=== PATIENT | male | born 1950 | race Caucasian/White ===

== ENCOUNTER 2017-09-17 13:26 | Inpatient (IN) ==
--- NOTE | 2017-09-17 13:50 | Emergency Department Note ---
Altered Mental Status HPI - General Chief Complaint: Altered Mental Status Stated Complaint: altered mental Time Seen by Provider: 09/17/17 13:32 Source: EMS Mode of arrival: EMS Limitations: altered mental status - History of Present Illness HPI Narrative: 67-year-old male presents by EMS due to walking around outside and incoherent speech. His hands and feet are very dirty. He is in his underwear. He has a history of alcohol abuse as well as alcohol withdrawal seizures and increased ammonia levels. He looks good at this time and is pleasant. He cannot really answer any questions and does not give adequate answers. No focal deficits. - Related Data Previous Rx's Medication Instructions Recorded Clindamycin HCl [Cleocin] 300 mg PO TID #30 cap 01/28/17 Allergies Allergy/AdvReac Type Severity Reaction Status Date / Time Sulfa (Sulfonamide Allergy Unknown HIVES Verified 12/25/16 14:00 Antibiotics) [SULFA(SULFONAMIDE ANTIBIOTICS)] Review of Systems All systems ED: reviewed and negative except as stated. Past Medical History - Past Medical History Medical history: Reports: seizures, other (alcoholism) Psychiatric history: Reports: no psych history Surgical history ED: Reports: non-contributory Family history: Reports: non-contributory - Social History smoking status: Current every day smoker Alcohol use: Reports: Heavy Drug use: Reports: none Physical Exam Limitations: altered mental status General appearance: alert, in no apparent distress Head: atraumatic Eye: Present: normal appearance. Absent: conjunctival injection Neck: Present: normal inspection, full ROM Chest: Present: normal inspection, symmetric chest wall rise Respiratory: Present: normal lung sounds bilaterally Cardiovascular: Present: tachycardia, normal heart sounds Abdominal: Present: soft, normal bowel sounds. Absent: tenderness Extremities: Present: normal inspection, full ROM Neurological: Present: alert, CN II-XII intact. Absent: oriented X3 Psychiatric: Present: normal mood. Absent: agitated Skin: Present: warm, dry, intact Course - Reevaluation(s) Reevaluation #1: I talked with his brother Galo Doshi and he said he will come in to talk to me. From what I did get from him he tried to get him to the hospital yesterday but police were not able to convince him. He states this is been a progressive worsening. He has not shown up yet but I will wait to talk to him. Time: 18:30 Reevaluation #2: Patient's family came in. His brother and cousin were able to talk to me. His brother states the last time he drank was on Friday. He wanted him to be evaluated psychologically due to hallucinating in the last week. He was able to see him yesterday and he was hallucinating but was able to have a conversation with him. The brother seems confused when I asked him questions. The brother thinks he is going crazy but I explained that due to his alcoholism he could have a secondary encephalopathy going on. The brother says that he does not think he has been drinking last few days but was drinking on Friday. The neighbors were concerned about him. He has not had any history of psychological issues that have been requiring hospitalization to mental health facility. Time: 19:15 Vital Signs Temperature 99.3 F H 09/17/17 13:27 Pulse Rate 106 H 09/17/17 13:27 Respiratory Rate 16 09/17/17 13:27 Blood Pressure 151/104 09/17/17 13:27 Pulse Oximetry (%) 98 09/17/17 13:27 Temperature 98.1 F 09/17/17 16:17 Pulse Rate 81 09/17/17 18:33 Respiratory Rate 18 09/17/17 18:33 Blood Pressure 162/85 09/17/17 18:33 Pulse Oximetry (%) 98 09/17/17 18:33 Altered Mental Status - Lab Data Lab results reviewed: Yes I reviewed the patient's lab results. Result diagrams: 09/17/17 13:53 09/17/17 13:53 Lab Results 09/17/17 09/17/17 09/17/17 Range/Units 13:53 13:53 13:53 WBC 10.5 (4.5-11.0) K/mcL RBC 4.93 (4.50-5.90) M/mcL Hgb 17.3 H (13.5-16.5) g/dL Hct 51.3 (41.0-55.0) % POC Hct 54.0 (41.0-55.0) % MCV 104.0 H (80.0-100.0) fL MCH 35.0 H (26.0-34.0) pg MCHC 33.6 (31.0-36.0) g/dL RDW 14.7 H (11.5-14.5) % Plt Count 252 (140-440) K/mcL MPV 8.9 (7.4-10.4) fL Total Counted 100 Seg Neutrophils % 76 (38-78) % Band Neutrophils % 2 (0-10) % Lymphocytes % 10 L (15-49) % Monocytes % (Manual) 8 (1-12) % Reactive Lymphocytes 4 H (0-2) % Platelet Estimate Normal (NORMAL) RBC Morphology Abnorm A (NORMAL) Macrocytosis 1+ A (NONE SEEN) PT (11.9-14.5) sec INR (0.9-1.1) VBG Lactic Acid 1.6 (0.5-2.2) mmol/L POC Sodium 141 (133-145) mmol/L Sodium 141 (133-145) mmol/L POC Potassium 4.3 (3.3-5.1) mmol/L Potassium 4.6 (3.3-5.1) mmol/L POC Chloride 106 (96-108) mmol/L Chloride 99 (96-108) mmol/L Carbon Dioxide 18 L (22-30) mmol/L POC Total CO2 21 L (22-30) mmol/L Anion Gap 24.0 H (8-16) POC BUN 42 H (8-23) mg/dl BUN 36 H (8-23) mg/dl Creatinine 2.9 H (0.7-1.2) mg/dl POC Creatinine 3.2 H (0.7-1.2) mg/dl GFR Calculation 22 Glucose 98 (70-105) mg/dL POC Glucose 103 (70-105) mg/dL Calcium 9.9 (8.6-10.4) mg/dl POC WB Ioniz Calcium 1.04 L (1.16-1.32) mmol/L Phosphorus (2.7-4.5) mg/dL Magnesium (1.6-2.5) mg/dL Total Bilirubin 0.8 (0.0-1.0) mg/dL AST 48 H (0-37) U/l ALT 18 (0-40) U/l Alkaline Phosphatase 85 (39-117) U/L Ammonia (16-60) umol/L Total Protein 7.7 (5.9-8.4) gm/dL Albumin 4.4 (3.2-5.2) gm/dL Globulin 3.3 (2.2-3.7) gm/dL Albumin/Globulin Ratio 1.3 (1.0-2.3) Urine Color Urine Appearance Urine pH (5.0-9.0) Ur Specific [place] (1.000-1.035) Urine Protein (NEG) mg/dL Urine Glucose (UA) (NEG) mg/dL Urine Ketones (NEG) mg/dL Urine Occult Blood (<0.03) mg/dL Urine Nitrate (NEG) Urine Bilirubin (NEG) mg/dL Urine Urobilinogen (NEG) mg/dL Ur Leukocyte Esterase (NEG) /uL Urine RBC (0-1) /hpf Urine WBC (0-4) /hpf Ur Squamous Epith Cells (0-4) /hpf Urine Bacteria (0) /hpf Hyaline Casts (0-2) /lpf Urine Mucus (0) /hpf Ur Culture Indicated? Urine Opiates Screen (NONDETECTED) Ur Oxycodone Screen (NONDETECTED) Urine Methadone Screen (NONDETECTED) Ur Barbiturates Screen (NONDETECTED) Ur Phencyclidine Scrn (NONDETECTED) Ur Amphetamines Screen (NONDETECTED) U Benzodiazepines Scrn (NONDETECTED) Urine Cocaine Screen (NONDETECTED) U Marijuana (THC) Screen (NONDETECTED) Ethyl Alcohol (<0.010) gm/dl 09/17/17 09/17/17 09/17/17 Range/Units 13:53 13:53 13:53 WBC (4.5-11.0) K/mcL RBC (4.50-5.90) M/mcL Hgb (13.5-16.5) g/dL Hct (41.0-55.0) % POC Hct (41.0-55.0) % MCV (80.0-100.0) fL MCH (26.0-34.0) pg MCHC (31.0-36.0) g/dL RDW (11.5-14.5) % Plt Count (140-440) K/mcL MPV (7.4-10.4) fL Total Counted Seg Neutrophils % (38-78) % Band Neutrophils % (0-10) % Lymphocytes % (15-49) % Monocytes % (Manual) (1-12) % Reactive Lymphocytes (0-2) % Platelet Estimate (NORMAL) RBC Morphology (NORMAL) Macrocytosis (NONE SEEN) PT (11.9-14.5) sec INR (0.9-1.1) VBG Lactic Acid (0.5-2.2) mmol/L POC Sodium (133-145) mmol/L Sodium (133-145) mmol/L POC Potassium (3.3-5.1) mmol/L Potassium (3.3-5.1) mmol/L POC Chloride (96-108) mmol/L Chloride (96-108) mmol/L Carbon Dioxide (22-30) mmol/L POC Total CO2 (22-30) mmol/L Anion Gap (8-16) POC BUN (8-23) mg/dl BUN (8-23) mg/dl Creatinine (0.7-1.2) mg/dl POC Creatinine (0.7-1.2) mg/dl GFR Calculation Glucose (70-105) mg/dL POC Glucose (70-105) mg/dL Calcium (8.6-10.4) mg/dl POC WB Ioniz Calcium (1.16-1.32) mmol/L Phosphorus 5.2 H (2.7-4.5) mg/dL Magnesium 1.9 (1.6-2.5) mg/dL Total Bilirubin (0.0-1.0) mg/dL AST (0-37) U/l ALT (0-40) U/l Alkaline Phosphatase (39-117) U/L Ammonia 26 (16-60) umol/L Total Protein (5.9-8.4) gm/dL Albumin (3.2-5.2) gm/dL Globulin (2.2-3.7) gm/dL Albumin/Globulin Ratio (1.0-2.3) Urine Color Urine Appearance Urine pH (5.0-9.0) Ur Specific [place] (1.000-1.035) Urine Protein (NEG) mg/dL Urine Glucose (UA) (NEG) mg/dL Urine Ketones (NEG) mg/dL Urine Occult Blood (<0.03) mg/dL Urine Nitrate (NEG) Urine Bilirubin (NEG) mg/dL Urine Urobilinogen (NEG) mg/dL Ur Leukocyte Esterase (NEG) /uL Urine RBC (0-1) /hpf Urine WBC (0-4) /hpf Ur Squamous Epith Cells (0-4) /hpf Urine Bacteria (0) /hpf Hyaline Casts (0-2) /lpf Urine Mucus (0) /hpf Ur Culture Indicated? Urine Opiates Screen (NONDETECTED) Ur Oxycodone Screen (NONDETECTED) Urine Methadone Screen (NONDETECTED) Ur Barbiturates Screen (NONDETECTED) Ur Phencyclidine Scrn (NONDETECTED) Ur Amphetamines Screen (NONDETECTED) U Benzodiazepines Scrn (NONDETECTED) Urine Cocaine Screen (NONDETECTED) U Marijuana (THC) Screen (NONDETECTED) Ethyl Alcohol < 0.010 (<0.010) gm/dl 09/17/17 09/17/17 09/17/17 Range/Units 13:53 15:50 15:50 WBC (4.5-11.0) K/mcL RBC (4.50-5.90) M/mcL Hgb (13.5-16.5) g/dL Hct (41.0-55.0) % POC Hct (41.0-55.0) % MCV (80.0-100.0) fL MCH (26.0-34.0) pg MCHC (31.0-36.0) g/dL RDW (11.5-14.5) % Plt Count (140-440) K/mcL MPV (7.4-10.4) fL Total Counted Seg Neutrophils % (38-78) % Band Neutrophils % (0-10) % Lymphocytes % (15-49) % Monocytes % (Manual) (1-12) % Reactive Lymphocytes (0-2) % Platelet Estimate (NORMAL) RBC Morphology (NORMAL) Macrocytosis (NONE SEEN) PT 12.4 (11.9-14.5) sec INR 0.9 (0.9-1.1) VBG Lactic Acid (0.5-2.2) mmol/L POC Sodium (133-145) mmol/L Sodium (133-145) mmol/L POC Potassium (3.3-5.1) mmol/L Potassium (3.3-5.1) mmol/L POC Chloride (96-108) mmol/L Chloride (96-108) mmol/L Carbon Dioxide (22-30) mmol/L POC Total CO2 (22-30) mmol/L Anion Gap (8-16) POC BUN (8-23) mg/dl BUN (8-23) mg/dl Creatinine (0.7-1.2) mg/dl POC Creatinine (0.7-1.2) mg/dl GFR Calculation Glucose (70-105) mg/dL POC Glucose (70-105) mg/dL Calcium (8.6-10.4) mg/dl POC WB Ioniz Calcium (1.16-1.32) mmol/L Phosphorus (2.7-4.5) mg/dL Magnesium (1.6-2.5) mg/dL Total Bilirubin (0.0-1.0) mg/dL AST (0-37) U/l ALT (0-40) U/l Alkaline Phosphatase (39-117) U/L Ammonia (16-60) umol/L Total Protein (5.9-8.4) gm/dL Albumin (3.2-5.2) gm/dL Globulin (2.2-3.7) gm/dL Albumin/Globulin Ratio (1.0-2.3) Urine Color Straw Urine Appearance Hazy Urine pH 5.0 (5.0-9.0) Ur Specific [place] 1.019 (1.000-1.035) Urine Protein 30 A (NEG) mg/dL Urine Glucose (UA) Negative (NEG) mg/dL Urine Ketones 20 A (NEG) mg/dL Urine Occult Blood Neg (<0.03) mg/dL Urine Nitrate Neg (NEG) Urine Bilirubin Neg (NEG) mg/dL Urine Urobilinogen 2.0 A (NEG) mg/dL Ur Leukocyte Esterase Neg (NEG) /uL Urine RBC 1 (0-1) /hpf Urine WBC 3 (0-4) /hpf Ur Squamous Epith Cells 0 (0-4) /hpf Urine Bacteria 0 (0) /hpf Hyaline Casts 113 H (0-2) /lpf Urine Mucus Many A (0) /hpf Ur Culture Indicated? No Urine Opiates Screen None detected (NONDETECTED) Ur Oxycodone Screen None detected (NONDETECTED) Urine Methadone Screen None detected (NONDETECTED) Ur Barbiturates Screen None detected (NONDETECTED) Ur Phencyclidine Scrn None detected (NONDETECTED) Ur Amphetamines Screen None detected (NONDETECTED) U Benzodiazepines Scrn None detected (NONDETECTED) Urine Cocaine Screen None detected (NONDETECTED) U Marijuana (THC) Screen Suspect positive A (NONDETECTED) Ethyl Alcohol (<0.010) gm/dl - Radiology Data Radiology results reviewed: Yes I reviewed the patient's radiology results. Negative chest x-ray and head CT Disposition Pt seen by [facility]/PA only: Yes Clinical Impression: Altered mental status, Encephalopathy acute, Acute kidney injury Disposition: Xfer As Inpt ([facility]) Condition: Fair
[2017-09-17] MEDS ORDERED: POTASSIUM CHLORIDE 20 MEQ, MAGNESIUM SULFATE 16.24 MEQ, THIAMINE 100 MG, MVI, ADULT NO.... IV SCH (14:00)
[2017-09-17] MEDS ORDERED: POTASSIUM CHLORIDE 20 MEQ, THIAMINE 100 MG, MVI, ADULT NO.4 WITH VIT K 10 ML in 0.9 % S... IV SCH (14:15)
[2017-09-17] MEDS ORDERED: 0.9 % SODIUM CHLORIDE 500 ML IV ONE (14:30)
--- NOTE | 2017-09-17 14:31 | XRay Report ---
HISTORY: Reason for Exam:confusion FINDINGS: The lungs are clear. The heart, mediastinum, jay and pleura are normal. IMPRESSION: Normal chest. Interpreted and Authenticated by: Rigo Encinas 09/17/17
[2017-09-17 14:41] LABS: Mean Corpuscular HGB Conc 33.6 g/dL (31.0-36.0); Platelet Count 252 K/mcL (140-440); RBC 4.93 M/mcL (4.50-5.90); Red Cell Distribution Width 14.7 % (11.5-14.5)
[2017-09-17 15:01] LABS: ALT/SGPT 18 U/l (0-40); Albumin 4.4 gm/dL (3.2-5.2); Albumin/Globulin Ratio 1.3 (1.0-2.3); Alkaline Phosphatase 85 U/L (39-117); Blood Urea Nitrogen 36 mg/dl (8-23)
[2017-09-17 15:20] LABS: Band Neutrophils % 2 % (0-10); Lymphocytes % 10 % (15-49); Monocytes % (Manual) 8 % (1-12); Platelet Estimate NORMAL (NORMAL); Segmented Neutrophils % 76 % (38-78)
[2017-09-17 15:21] LABS: Macrocytosis 1+ (NONE SEEN); RBC Morphology ABNORM (NORMAL)
--- NOTE | 2017-09-17 15:48 | Cat Scan Report ---
History: Altered mental status TECHNIQUE: The brain was imaged without contrast at 2.5 mm intervals. Dose reduction technology was used. FINDINGS: There is mild atrophy both above and below the tentorium. There is no apparent infarct. No hemorrhage or mass effect are present. The ventricles are normal in size. There has been mild progression of the atrophy in the cerebellum since the prior head CT done on 10/21/14. IMPRESSION: Cerebral atrophy and no acute abnormality. Tanesha Borjas was called with results Interpreted and Authenticated by: Rigo Encinas 09/17/17
[2017-09-17 16:22] LABS: Appearance,Urine HAZY; Bacteria,Urine 0 /hpf (0); Bilirubin,Urine NEG (NEG); Color,Urine STRAW; Glucose,Urine (UA) NEGATIVE (NEG); Leukocyte Esterase,Urine NEG /uL (NEG); Mucus,Urine MANY /hpf (0); Protein,Urine 30 mg/dL (NEG); Specific Gravity,Urine 1.019 (1.000-1.035); Urine Blood NEG mg/dL (<0.03); Urine Hyaline Cast 113 /lpf (0-2); Urine RBC 1 /hpf (0-1); Urine Squamous Epithelial Cell 0 /hpf (0-4); Urine WBC 3 /hpf (0-4)
[2017-09-17 16:28] LABS: Amphetamine Screen,Urine NONE DETECTED (NONDETECTED); Benzodiazepines Screen,Urine NONE DETECTED (NONDETECTED); Cocaine Screen,Urine NONE DETECTED (NONDETECTED); Opiate Screen,Urine NONE DETECTED (NONDETECTED); Oxycodone, Urine Screen NONE DETECTED (NONDETECTED)
[2017-09-17] MEDS ORDERED: 0.9 % SODIUM CHLORIDE 1,000 ML IV ONE ×2 (16:38→18:27)
[2017-09-17] MEDS ORDERED: THIAMINE 100 MG TABLET PO ONE (16:51)
[2017-09-17] MEDS ORDERED: THIAMINE 100 MG/ML VIAL IM ONE (17:08)
[2017-09-17] MEDS ORDERED: ONDANSETRON 4 MG/2 ML VIAL IV PRN ×3 (18:42→19:59)
[2017-09-17] MEDS ORDERED: 0.45 % SODIUM CHLORIDE 1,000 ML IV SCH ×3 (18:45→19:59)
[2017-09-17] MEDS ORDERED: IPRATROPIUM/ALBUTEROL 3 ML AMPUL.NEB NEB SCH (19:00)
--- NOTE | 2017-09-17 19:39 | Internal Med History&Physical ---
Medical - H&P: [facility] Patient information: Note initiated : 09/17/17 at 7:36 pm Service Date, if different from initiated Date: [] Patient: Carloz Doshi a 67 y/o M admitted on 09/17/17 for altered mental. Chief Complaint: [] Chief complaint: altered mental status History of present illness: Mr. Doshi is a 67 year old M with significant history of tobacco and alcohol abuse, alcohol withdrawal seizures, is noted to be unkempt, heaving strangely, with incoherent speech, in underwear. Apparently his neighbors concerned and called the EMS. He is in a catatonic state, nonresponsive and nonverbal with blank stares. No information is available other than verbal reports from EMS and ER provider,Tanesha Borjas PA-C, who says his brother's contact number on his record does not work. Preliminary lab work showed acute kidney injury, with severe dehydration, urine drug screen is pending. He has gotten, liter of IV fluid, and he is currently receiving banana bag and additional thiamine ( orally or IM). We'll admit him on MedSurg with watcher, aggressive IV fluid rehydration, daily [id number], evaluate and treat reversible medical causes ROS unobtainable: due to mental status All systems: reviewed and no additional remarkable complaints except as stated Medical - H&P: PMH Medical history: Withdrawal seizures, reported epilepsy, alcohol abuse and tobacco abuse,. Medical - H&P: Meds Allergies Allergy/AdvReac Type Severity Reaction Status Date / Time Sulfa (Sulfonamide Allergy Unknown HIVES Verified 12/25/16 14:00 Antibiotics) [SULFA(SULFONAMIDE ANTIBIOTICS)] Medical - H&P: Exam - Constitutional Vitals: Temp Pulse Resp BP Pulse Ox 97.8 F 76 18 138/75 95 09/17/17 19:12 09/17/17 19:12 09/17/17 19:12 09/17/17 19:12 09/17/17 19:12 General appearance: no acute distress Exam: Blank stares, nonverbal, nonresponsive - Head Head exam: Present: atraumatic, normocephalic - Eye Eye exam: Present: EOMI Pupils: Present: PERRL - ENT ENT exam: Present: mucous membranes dry - Neck Neck exam: Absent: lymphadenopathy, meningismus - Respiratory Respiratory exam: Present: CTAB. Absent: accessory muscle use - Cardiovascular Cardiovascular exam: Present: +S1, +S2, tachycardia - GI/Abdominal GI/Abdominal exam: Present: normal bowel sounds, soft. Absent: guarding, rebound, tenderness - Extremities Exam Extremities exam: Absent: pedal edema, tenderness Additional comments: Dirts on all extremities - Neurological Exam Neurological exam: Present: altered, CN II-XII intact Additional comments: Nonresponsive to verbal, in communicative - Psychiatric Psychiatric exam: Present: flat affect Additional comments: Catatonic state - Skin Skin exam: Present: abrasion, dry Additional comments: Dirts all over Medical - H&P: Reslt - Labs CBC & Chem 7: 09/18/17 04:23 09/17/17 19:35 Labs: Short CBC 09/17/17 Range/Units 13:53 WBC 10.5 (4.5-11.0) K/mcL Hgb 17.3 H (13.5-16.5) g/dL Hct 51.3 (41.0-55.0) % Plt Count 252 (140-440) K/mcL BMP 09/17/17 13:53 Sodium 141 Potassium 4.6 Chloride 99 Carbon Dioxide 18 L BUN 36 H Creatinine 2.9 H Glucose 98 Calcium 9.9 Liver Function 09/17/17 Range/Units 13:53 Total Bilirubin 0.8 (0.0-1.0) mg/dL AST 48 H (0-37) U/l ALT 18 (0-40) U/l Alkaline Phosphatase 85 (39-117) U/L Albumin 4.4 (3.2-5.2) gm/dL Urine 09/17/17 Range/Units 15:50 Urine Color Straw Urine Appearance Hazy Urine pH 5.0 (5.0-9.0) Ur Specific [place] 1.019 (1.000-1.035) Urine Protein 30 A (NEG) mg/dL Urine Glucose (UA) Negative (NEG) mg/dL - Imaging and Cardiology CT scan - head Additional comments: IMPRESSION: Cerebral atrophy and no acute abnormality. Tanesha Borjas was called with results Interpreted and Authenticated by: Rigo Encinas 09/17/17 Chest x-ray Additional comments: IMPRESSION: Normal chest. Interpreted and Authenticated by: Rigo Encinas 09/17/17 Medical - H&P: A/P (1) Encephalopathy acute Current visit: Yes Status: Acute (2) Acute kidney injury Current visit: Yes Status: Acute (3) Alcohol abuse Current visit: No Status: Acute (4) Marijuana abuse Current visit: Yes Status: Acute (5) Tobacco abuse Current visit: Yes Status: Acute (6) Alcohol withdrawal Current visit: Yes Status: Acute - Narrative A/P Narrative: IV fluid, serial electrolyte check, CIWA protocol, watcher-sitter, daily vitamins (supplements), will consult social work for placement. He may have undiagnosed at until line psychiatric issue or disorders, will benefit from psychiatric evaluation and referral once his medically issues are stabilized
[2017-09-17 20:37] LABS: Prealbumin 15.4 mg/dl (20-40)
[2017-09-17 20:48] LABS: Blood Urea Nitrogen 30 mg/dl (8-23)
[2017-09-17 20:54] LABS: Vitamin B12 799.4 pg/ml (232-1245)
[2017-09-17] MEDS ORDERED: 0.9 % SODIUM CHLORIDE 10 ML SYRINGE IV SCH ×2 (22:00)
[2017-09-17] MEDS: 0.9 % SODIUM CHLORIDE 10 ML SYRINGE IV SCH (22:00)
[2017-09-18] MEDS: 0.45 % SODIUM CHLORIDE 1,000 ML IV SCH ×4 (00:01→08:20)
[2017-09-18] MEDS ORDERED: chlordiazePOXIDE 25 MG CAPSULE PO PRN (00:26)
[2017-09-18] MEDS: IPRATROPIUM/ALBUTEROL 3 ML AMPUL.NEB NEB SCH ×4 (00:59→19:35)
[2017-09-18] MEDS ORDERED: IPRATROPIUM/ALBUTEROL 3 ML AMPUL.NEB NEB SCH (01:00)
[2017-09-18] MEDS: 0.9 % SODIUM CHLORIDE 10 ML SYRINGE IV SCH ×4 (06:02→21:19)
[2017-09-18 06:24] LABS: Basophils # (Auto) 0 K/mcL (0.0-0.3); Basophils % (Auto) 0.4 % (0.0-2.0); Eosinophils # (Auto) 0.2 K/mcL (0.0-0.7); Granulocytes % (Auto) 69.5 % (38.0-78.0); Lymphocytes # (Auto) 1.5 K/mcL (1.5-4.8); Lymphocytes % (Auto) 18.4 % (15.5-49.0); Mean Cell Volume 105.4 fL (80.0-100.0); Mean Corpuscular HGB Conc 33.4 g/dL (31.0-36.0); Mean Corpuscular Hemoglobin 35.2 pg (26.0-34.0); Monocytes # (Auto) 0.8 K/mcL (0.1-0.9); Monocytes % (Auto) 9.7 % (1.0-12.0); Platelet Count 200 K/mcL (140-440); RBC 3.81 M/mcL (4.50-5.90); Red Cell Distribution Width 14.7 % (11.5-14.5)
[2017-09-18 06:51] LABS: ALT/SGPT 12 U/l (0-40); Albumin 3.1 gm/dL (3.2-5.2); Albumin/Globulin Ratio 1.5 (1.0-2.3); Alkaline Phosphatase 60 U/L (39-117); Amylase 44 U/L (28-100); Blood Urea Nitrogen 22 mg/dl (8-23); Lipase 25 U/L (7-60)
--- NOTE | 2017-09-18 07:05 | Internal Med Progress Note ---
Medical - PN: Subj Patient information: Note initiated : 09/18/17 at 7:04 am Service Date, if different from initiated Date: [] Patient: Carloz Doshi 67 y/o M admitted on 09/17/17 for altered mental. Chief Complaint: [] Interval history: Mr. Doshi is a 67 year old M with significant history of tobacco and alcohol abuse, alcohol withdrawal seizures, is noted to be unkempt, beheaving strangely , with incoherent speech, in underwear. Apparently his neighbors concerned and called the EMS. He is in a catatonic state, nonresponsive and nonverbal with blank stares. No information is available other than verbal reports from EMS and ER provider,Tanesha Borjas PA-C, who says his brother's contact number on his record does not work. Preliminary lab work showed acute kidney injury, with severe dehydration, urine drug screen is pending. He has gotten, a liter of IV fluid, and he is currently receiving banana bag and additional thiamine ( orally or IM). We'll admit him on MedSurg with watcher, aggressive IV fluid rehydration, daily [id number], evaluate and treat reversible medical causes 09/18/2017 Overnight, his renal function improves with IV fluid rehydration, had moments of awake responsiveness, however still encephalopathic, unable to communicate normally. His urine screen came back positive for marijuana, pending confirmatory test. His brother and cousin came in and provided more information: he has years of alcohol abuse and smoke pots, had withdrawal seizure and DT in the past, may have epilepsy disorder at young age (thought that medication mess up his mind, therefore doesn't like medications & see doctors, few family members have mental health disorders, had impulse control issues (often gets into fights), apparently was not behaving normally in the last several days, with hallucinations. His brother and cousin want to seek help for him but have limited information/source. - Constitutional Vitals: Vital Signs Temp Pulse Resp BP Pulse Ox 98.9 F 69 20 145/75 97 09/18/17 03:35 09/18/17 03:35 09/18/17 03:35 09/18/17 03:35 09/18/17 03:35 Period Temp Pulse Resp BP Sys/Aviles Pulse Ox Last 24 Hr 97.8 F-99.3 F 68-106 11-28 127-168/75-104 94-98 Intake and Output 09/17/17 09/18/17 09/18/17 21:59 05:59 13:59 Intake Total 3521 / 3521 1110 / 1110 Output Total 200 / 200 850 / 850 Balance 3321 / 3321 260 / 260 Weight 151 lb Intake & Output: Intake & Output 09/17/17 09/18/17 09/18/17 21:59 05:59 13:59 Intake Total 3521 / 3521 1110 / 1110 Output Total 200 / 200 850 / 850 Balance 3321 / 3321 260 / 260 Weight 151 lb Intake: IV 3521 / 3521 1000 / 1000 Sodium Chloride 0.45% 1,000 ml 1000 / 1000 @ 300 mls/hr IV .Q3H20M [facility] Rx# :[id number] Sodium Chloride 0.9% 1,000 ml @ 2000 / 2000 Wide Open IV [facility] Rx#: [id number] Sodium Chloride 0.9% 500 ml @ 500 / 500 Wide Open IV [facility] Rx#: [id number] Potassium Chloride 20 Meq 1021 / 1021 Vitamin B1 100 mg Infuvite Adult 10 ml In Sodium Chloride 0.9% 1,000 ml @ 250 mls/hr IV . Q4H6M [facility] Rx#:[id number] Oral 110 / 110 Output: Urine Catheter Amount 850 / 850 Void Amount 200 / 200 Straight 200 / 200 General appearance: no acute distress Exam: unkempt, catatonic - Head Head exam: Present: atraumatic, normocephalic - Eye Pupils: Present: PERRL - ENT ENT exam: Present: mucous membranes dry Additional comments: Oropharynx Slightly dry - Neck Neck exam: Absent: lymphadenopathy, meningismus - Respiratory Respiratory exam: Present: CTAB. Absent: accessory muscle use - Cardiovascular Cardiovascular exam: Present: +S1, +S2. Absent: clicks, diastolic murmur, gallop, rubs, systolic murmur - GI/Abdominal GI/Abdominal exam: Present: normal bowel sounds, soft. Absent: guarding, rebound, tenderness - Extremities Exam Extremities exam: Present: normal capillary refill. Absent: pedal edema, tenderness - Neurological Exam Additional comments: Limited exam, appears in catatonic state, unresponsive to verbal cues. - Psychiatric Psychiatric exam: Present: flat affect Additional comments: Catatonic Medical - PN: Obj Da - Labs CBC & Chem 7: 09/20/17 04:52 09/20/17 04:52 Labs: Abnormal Lab Results 09/18/17 09/18/17 09/17/17 04:23 04:23 19:35 RBC 3.81 L Hgb 13.4 L Hct 40.1 L MCV 105.4 H MCH 35.2 H RDW 14.7 H Lymphocytes % Reactive Lymphocytes RBC Morphology Macrocytosis D-Dimer 0.56 H Chloride Carbon Dioxide 19 L POC Total CO2 Anion Gap POC BUN BUN Creatinine POC Creatinine Calcium 8.1 L POC WB Ioniz Calcium Phosphorus AST Total Protein 5.2 L Albumin 3.1 L Globulin 2.1 L Prealbumin Urine Protein Urine Ketones Urine Urobilinogen Hyaline Casts Urine Mucus U Marijuana (THC) Screen 09/17/17 09/17/17 09/17/17 19:35 19:35 15:50 RBC Hgb Hct MCV MCH RDW Lymphocytes % Reactive Lymphocytes RBC Morphology Macrocytosis D-Dimer Chloride 109 H Carbon Dioxide 20 L POC Total CO2 Anion Gap POC BUN BUN 30 H Creatinine 1.8 H POC Creatinine Calcium 8.2 L POC WB Ioniz Calcium Phosphorus AST Total Protein Albumin Globulin Prealbumin 15.4 L Urine Protein Urine Ketones Urine Urobilinogen Hyaline Casts Urine Mucus U Marijuana (THC) Screen Suspect positive A 09/17/17 09/17/17 09/17/17 15:50 13:53 13:53 RBC Hgb Hct MCV MCH RDW Lymphocytes % Reactive Lymphocytes RBC Morphology Macrocytosis D-Dimer Chloride Carbon Dioxide 18 L POC Total CO2 21 L Anion Gap 24.0 H POC BUN 42 H BUN 36 H Creatinine 2.9 H POC Creatinine 3.2 H Calcium POC WB Ioniz Calcium 1.04 L Phosphorus 5.2 H AST 48 H Total Protein Albumin Globulin Prealbumin Urine Protein 30 A Urine Ketones 20 A Urine Urobilinogen 2.0 A Hyaline Casts 113 H Urine Mucus Many A U Marijuana (THC) Screen 09/17/17 13:53 RBC Hgb 17.3 H Hct MCV 104.0 H MCH 35.0 H RDW 14.7 H Lymphocytes % 10 L Reactive Lymphocytes 4 H RBC Morphology Abnorm A Macrocytosis 1+ A D-Dimer Chloride Carbon Dioxide POC Total CO2 Anion Gap POC BUN BUN Creatinine POC Creatinine Calcium POC WB Ioniz Calcium Phosphorus AST Total Protein Albumin Globulin Prealbumin Urine Protein Urine Ketones Urine Urobilinogen Hyaline Casts Urine Mucus U Marijuana (THC) Screen Meds: Medications Albuterol/Ipratropium (Duoneb) 3 ml NEB Q6HRT [facility] Last Admin: 09/18/17 00:59 Dose: 3 ml Chlordiazepoxide HCl (Librium) 50 mg PO Q4HP PRN PRN Reason: Alcohol Withdrawal Enoxaparin Sodium (Lovenox) 30 mg SQ DAILY [facility] Folic Acid (Folic Acid) 1 mg PO DAILY [facility] Sodium Chloride (Sodium Chloride 0.45%) 1,000 mls @ 300 mls/hr IV .Q3H20M [facility] Stop: 09/18/17 09:58 Last Admin: 09/18/17 04:55 Dose: 300 mls/hr Iron Carb/Multivit/[place]/Folic Acid (Multivitamin W/Minerals) 1 tab PO DAILY [facility] Ondansetron HCl (Zofran) 4 mg IV Q6HP PRN PRN Reason: Nausea And Vomiting Sodium Chloride (Saline Flush) 10 ml IV Q8 [facility] Last Admin: 09/18/17 06:02 Dose: Not Given Sodium Chloride (Saline Flush) 10 ml IV Q8 [facility] Last Admin: 09/18/17 06:02 Dose: 10 ml Thiamine HCl (Vitamin B1) 100 mg PO QDAY [facility] Medical - PN: A/P - Time Spent With Patient Total time spent is greater than 50% in coordination of care (as documented) at patient's floor/unit and/or counseling patient: 25 - 35 minutes (1) Encephalopathy acute Status: Acute Current Visit: Yes (2) Acute kidney injury Status: Acute Current Visit: Yes (3) Alcohol abuse Status: Acute Current Visit: No (4) Marijuana abuse Status: Acute Current Visit: Yes (5) Tobacco abuse Status: Acute Current Visit: Yes (6) Alcohol withdrawal Status: Acute Current Visit: Yes - Narrative A/P Narrative: Continue IV fluid, monitor renal functions, replace electrolytes, continues CIWA protocol with Librium and Ativan, Daily supplements with bottom-up the development, multivitamin, B-12, thiamine, folate, PT/OT/speech (eval & treat), social work consult. He may have undiagnosed underline psychiatric issue or disorders, will benefit from psychiatric referral for evaluation, once his medical issues are stabilized. Medical - PN: Qual - Stroke Symptom Onset Unknown: No - VTE Deep Vein Thrombosis/Pulmonary Embolism Present on Admission: No
[2017-09-18] MEDS ORDERED: ENOXAPARIN 30 MG/0.3 ML SYRINGE SQ SCH ×2 (09:00)
[2017-09-18] MEDS: FOLIC ACID 1 MG TABLET PO SCH (11:48)
[2017-09-18] MEDS: MULTIVIT,THER IRON,CA,FA & MIN 1 TABLET PO SCH (11:49)
[2017-09-18] MEDS: THIAMINE 100 MG TABLET PO SCH (11:49)
[2017-09-18] MEDS: ENOXAPARIN 30 MG/0.3 ML SYRINGE SQ SCH (11:49)
[2017-09-18] MEDS ORDERED: chlordiazePOXIDE 25 MG CAPSULE PO SCH (12:00)
[2017-09-18] MEDS ORDERED: THIAMINE 100 MG TABLET PO ONE ×2 (16:31→16:41)
[2017-09-18] MEDS: chlordiazePOXIDE 25 MG CAPSULE PO SCH (18:22)
[2017-09-18] MEDS ORDERED: LORazepam 2 MG/ML VIAL IV PRN (18:30)
[2017-09-19] MEDS: chlordiazePOXIDE 25 MG CAPSULE PO SCH ×4 (00:20→20:18)
[2017-09-19] MEDS: IPRATROPIUM/ALBUTEROL 3 ML AMPUL.NEB NEB SCH ×4 (00:25→20:01)
[2017-09-19] MEDS: 0.9 % SODIUM CHLORIDE 10 ML SYRINGE IV SCH ×3 (05:51→20:29)
[2017-09-19 06:17] LABS: Basophils # (Auto) 0 K/mcL (0.0-0.3); Basophils % (Auto) 0.4 % (0.0-2.0); Eosinophils # (Auto) 0.3 K/mcL (0.0-0.7); Eosinophils % (Auto) 4.3 % (0.0-7.0); Granulocytes % (Auto) 67.5 % (38.0-78.0); Lymphocytes # (Auto) 1.4 K/mcL (1.5-4.8); Lymphocytes % (Auto) 17.2 % (15.5-49.0); Mean Cell Volume 105.3 fL (80.0-100.0); Mean Corpuscular HGB Conc 33.1 g/dL (31.0-36.0); Mean Corpuscular Hemoglobin 34.9 pg (26.0-34.0); Monocytes # (Auto) 0.8 K/mcL (0.1-0.9); Monocytes % (Auto) 10.6 % (1.0-12.0); Platelet Count 200 K/mcL (140-440); RBC 3.79 M/mcL (4.50-5.90); Red Cell Distribution Width 14.9 % (11.5-14.5)
[2017-09-19 07:03] LABS: ALT/SGPT 14 U/l (0-40); Albumin/Globulin Ratio 1.3 (1.0-2.3); Alkaline Phosphatase 64 U/L (39-117); Blood Urea Nitrogen 10 mg/dl (8-23)
[2017-09-19] MEDS ORDERED: THIAMINE 100 MG in 0.9 % SODIUM CHLORIDE 50 ML IV SCH (09:00)
[2017-09-19] MEDS: FOLIC ACID 1 MG TABLET PO SCH (09:53)
[2017-09-19] MEDS: THIAMINE 100 MG TABLET PO SCH (09:53)
[2017-09-19] MEDS: MULTIVIT,THER IRON,CA,FA & MIN 1 TABLET PO SCH (09:53)
[2017-09-19] MEDS: ENOXAPARIN 30 MG/0.3 ML SYRINGE SQ SCH (09:59)
--- NOTE | 2017-09-19 10:24 | Internal Med Progress Note ---
Medical - PN: Subj Patient information: Note initiated : 09/19/17 at 10:19 am Service Date, if different from initiated Date: [] Patient: Carloz Doshi 67 y/o M admitted on 09/17/17 for Altered Mental Status, Encephalopathy,Kidney Injury. Chief Complaint: [] Interval history: Mr. Doshi is a 67 year old M with significant history of tobacco and alcohol abuse, alcohol withdrawal seizures, is noted to be unkempt, heaving strangely, with incoherent speech, in underwear. Apparently his neighbors concerned and called the EMS. He is in a catatonic state, nonresponsive and nonverbal with blank stares. No information is available other than verbal reports from EMS and ER provider,Tanesha Borjas PA-C, who says his brother's contact number on his record does not work. Preliminary lab work showed acute kidney injury, with severe dehydration, urine drug screen is pending. He has gotten, liter of IV fluid, and he is currently receiving banana bag and additional thiamine ( orally or IM). We'll admit him on MedSurg with watcher, aggressive IV fluid rehydration, daily [id number], evaluate and treat reversible medical causes September 19-patient in significant alcohol withdrawal requiring benzodiazepines per [facility] protocol. This morning improved psychomotor agitation. Resting comfortably. Was able to greet and opens eyes. CT head reveals cerebral atrophy without acute changes. Improved creatinine from 1.8-0.8 with resolution of renal failure. Continue monitoring for alcohol withdrawals. - Constitutional Vitals: Vital Signs Temp Pulse Resp BP Pulse Ox 97.7 F 56 L 18 142/80 95 09/19/17 09:07 09/19/17 04:30 09/19/17 09:07 09/19/17 09:07 09/19/17 09:07 Period Temp Pulse Resp BP Sys/Aviles Pulse Ox Last 24 Hr 97.4 F-98.1 F 51-65 16-22 126-142/71-80 95-99 Intake and Output 09/18/17 09/19/17 09/19/17 21:59 05:59 13:59 Intake Total 50 / 50 120 / 120 Output Total 350 / 350 1125 / 1125 Balance -350 / -350 -1075 / -1075 120 / 120 Weight 152 lb 1.6 oz Intake & Output: Intake & Output 09/18/17 09/19/17 09/19/17 21:59 05:59 13:59 Intake Total 50 / 50 120 / 120 Output Total 350 / 350 1125 / 1125 Balance -350 / -350 -1075 / -1075 120 / 120 Weight 152 lb 1.6 oz Intake: Oral 50 / 50 120 / 120 Output: Urine Catheter Amount 350 / 350 1125 / 1125 Other: Meal Breakfast Percent of Meal Consumed 75% General appearance: no acute distress Exam: Somnolent but able to open eyes nonlabored breathing Nondistended abdomen Minimal anxiety Medical - PN: Obj Da - Labs CBC & Chem 7: 09/19/17 04:35 09/19/17 04:35 Labs: Abnormal Lab Results 09/19/17 09/19/17 09/18/17 04:35 04:35 04:23 RBC 3.79 L Hgb 13.2 L Hct 39.9 L MCV 105.3 H MCH 34.9 H RDW 14.9 H Lymph # (Auto) 1.4 L Lymphocytes % Reactive Lymphocytes RBC Morphology Macrocytosis D-Dimer Chloride Carbon Dioxide 19 L POC Total CO2 Anion Gap POC BUN BUN Creatinine POC Creatinine Glucose 65 L Calcium 8.1 L POC WB Ioniz Calcium Phosphorus AST Total Protein 5.3 L 5.2 L Albumin 3.0 L 3.1 L Globulin 2.1 L Prealbumin Urine Protein Urine Ketones Urine Urobilinogen Hyaline Casts Urine Mucus U Marijuana (THC) Screen 09/18/17 09/17/17 09/17/17 04:23 19:35 19:35 RBC 3.81 L Hgb 13.4 L Hct 40.1 L MCV 105.4 H MCH 35.2 H RDW 14.7 H Lymph # (Auto) Lymphocytes % Reactive Lymphocytes RBC Morphology Macrocytosis D-Dimer 0.56 H Chloride Carbon Dioxide POC Total CO2 Anion Gap POC BUN BUN Creatinine POC Creatinine Glucose Calcium POC WB Ioniz Calcium Phosphorus AST Total Protein Albumin Globulin Prealbumin 15.4 L Urine Protein Urine Ketones Urine Urobilinogen Hyaline Casts Urine Mucus U Marijuana (THC) Screen 09/17/17 09/17/17 09/17/17 19:35 15:50 15:50 RBC Hgb Hct MCV MCH RDW Lymph # (Auto) Lymphocytes % Reactive Lymphocytes RBC Morphology Macrocytosis D-Dimer Chloride 109 H Carbon Dioxide 20 L POC Total CO2 Anion Gap POC BUN BUN 30 H Creatinine 1.8 H POC Creatinine Glucose Calcium 8.2 L POC WB Ioniz Calcium Phosphorus AST Total Protein Albumin Globulin Prealbumin Urine Protein 30 A Urine Ketones 20 A Urine Urobilinogen 2.0 A Hyaline Casts 113 H Urine Mucus Many A U Marijuana (THC) Screen Suspect positive A 09/17/17 09/17/17 09/17/17 13:53 13:53 13:53 RBC Hgb 17.3 H Hct MCV 104.0 H MCH 35.0 H RDW 14.7 H Lymph # (Auto) Lymphocytes % 10 L Reactive Lymphocytes 4 H RBC Morphology Abnorm A Macrocytosis 1+ A D-Dimer Chloride Carbon Dioxide 18 L POC Total CO2 21 L Anion Gap 24.0 H POC BUN 42 H BUN 36 H Creatinine 2.9 H POC Creatinine 3.2 H Glucose Calcium POC WB Ioniz Calcium 1.04 L Phosphorus 5.2 H AST 48 H Total Protein Albumin Globulin Prealbumin Urine Protein Urine Ketones Urine Urobilinogen Hyaline Casts Urine Mucus U Marijuana (THC) Screen Meds: Medications Albuterol/Ipratropium (Duoneb) 3 ml NEB Q6HRT [facility] Last Admin: 09/19/17 07:20 Dose: Not Given Chlordiazepoxide HCl (Librium) 0 mg PO Q6 [facility]; Protocol Last Admin: 09/19/17 09:51 Dose: Not Given Enoxaparin Sodium (Lovenox) 30 mg SQ DAILY [facility] Last Admin: 09/19/17 09:59 Dose: 30 mg Folic Acid (Folic Acid) 1 mg PO DAILY [facility] Last Admin: 09/19/17 09:53 Dose: 1 mg Iron Carb/Multivit/Cardwell/Folic Acid (Multivitamin W/Minerals) 1 tab PO DAILY [facility] Last Admin: 09/19/17 09:53 Dose: 1 tab Lorazepam (Ativan) 0 mg IV Q1HP PRN; Protocol PRN Reason: ANXIETY/SEDATION Ondansetron HCl (Zofran) 4 mg IV Q6HP PRN PRN Reason: Nausea And Vomiting Sodium Chloride (Saline Flush) 10 ml IV Q8 [facility] Last Admin: 09/19/17 05:51 Dose: 10 ml Thiamine HCl (Vitamin B1) 100 mg PO QDAY [facility] Last Admin: 09/19/17 09:53 Dose: 100 mg Medical - PN: A/P - Time Spent With Patient Total time spent is greater than 50% in coordination of care (as documented) at patient's floor/unit and/or counseling patient: 25 - 35 minutes - Narrative A/P Narrative: * Acute change in mental status- clinically improving. 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 Continue IV thiamine * Alcohol withdrawal/DTs- on oral and as needed IV benzodiazepines * Acute renal failure-clinically resolved. * Prophylaxis enoxaparin Plan * Continue monitoring for alcohol withdrawal/when necessary benzodiazepines * IV thiamine * Continue crystalloids * Dietitian consult for adequate protein calorie supplements Medical - PN: Qual - Stroke Symptom Onset Unknown: No - VTE Deep Vein Thrombosis/Pulmonary Embolism Present on Admission: No
[2017-09-19] MEDS: LACTATED RINGERS 1,000 ML IV SCH ×2 (10:30→20:28)
[2017-09-20] MEDS: chlordiazePOXIDE 25 MG CAPSULE PO SCH ×4 (01:18→16:14)
[2017-09-20] MEDS: IPRATROPIUM/ALBUTEROL 3 ML AMPUL.NEB NEB SCH ×5 (01:28→18:41)
[2017-09-20] MEDS: 0.9 % SODIUM CHLORIDE 10 ML SYRINGE IV SCH ×3 (05:00→20:45)
[2017-09-20 06:59] LABS: Basophils # (Auto) 0.1 K/mcL (0.0-0.3); Basophils % (Auto) 0.7 % (0.0-2.0); Eosinophils # (Auto) 0.4 K/mcL (0.0-0.7); Eosinophils % (Auto) 4.8 % (0.0-7.0); Granulocytes % (Auto) 66.9 % (38.0-78.0); Lymphocytes # (Auto) 1.8 K/mcL (1.5-4.8); Lymphocytes % (Auto) 21.3 % (15.5-49.0); Mean Cell Volume 104.6 fL (80.0-100.0); Mean Corpuscular HGB Conc 33.8 g/dL (31.0-36.0); Mean Corpuscular Hemoglobin 35.4 pg (26.0-34.0); Monocytes # (Auto) 0.5 K/mcL (0.1-0.9); Monocytes % (Auto) 6.3 % (1.0-12.0); Platelet Count 227 K/mcL (140-440); RBC 4.05 M/mcL (4.50-5.90); Red Cell Distribution Width 14.3 % (11.5-14.5)
[2017-09-20] MEDS: LACTATED RINGERS 1,000 ML IV SCH (07:03)
[2017-09-20 07:36] LABS: ALT/SGPT 12 U/l (0-40); Albumin 2.9 gm/dL (3.2-5.2); Albumin/Globulin Ratio 1.2 (1.0-2.3); Alkaline Phosphatase 65 U/L (39-117); Blood Urea Nitrogen 6 mg/dl (8-23)
[2017-09-20] MEDS: THIAMINE 100 MG TABLET PO SCH (10:25)
[2017-09-20] MEDS: MULTIVIT,THER IRON,CA,FA & MIN 1 TABLET PO SCH (10:25)
[2017-09-20] MEDS: FOLIC ACID 1 MG TABLET PO SCH (10:25)
[2017-09-20] MEDS: ENOXAPARIN 30 MG/0.3 ML SYRINGE SQ SCH (11:04)
--- NOTE | 2017-09-20 20:16 | Internal Med Progress Note ---
Medical - PN: Subj Patient information: Note initiated : 09/20/17 at 8:16 pm Service Date, if different from initiated Date: [] Patient: Carloz Doshi a 67 y/o M admitted on 09/17/17 for Altered Mental Status, Encephalopathy,Kidney Injury. Chief Complaint: [] Interval history: Mr. Doshi is a 67 year old M with significant history of tobacco and alcohol abuse, alcohol withdrawal seizures, is noted to be unkempt, beheaving strangely , with incoherent speech, in underwear. Apparently his neighbors concerned and called the EMS. He is in a catatonic state, nonresponsive and nonverbal with blank stares. No information is available other than verbal reports from EMS and ER provider,Tanesha Borjas PA-C, who says his brother's contact number on his record does not work. Preliminary lab work showed acute kidney injury, with severe dehydration, urine drug screen is pending. He has gotten, a liter of IV fluid, and he is currently receiving banana bag and additional thiamine ( orally or IM). We'll admit him on MedSurg with watcher, aggressive IV fluid rehydration, daily [id number], evaluate and treat reversible medical causes 09/18/2017 Overnight, his renal function improves with IV fluid rehydration, had moments of awake responsiveness, however still encephalopathic, unable to communicate normally. His urine screen came back positive for marijuana, pending confirmatory test. His brother and cousin came in and provided more information: he has years of alcohol abuse and smoke pots, had withdrawal seizure and DT in the past, may have epilepsy disorder at young age (thought that medication mess up his mind, therefore doesn't like medications & see doctors, few family members have mental health disorders, had impulse control issues (often gets into fights), apparently was not behaving normally in the last several days, with hallucinations. His brother and cousin want to seek help for him but have limited information/source September 19-patient in significant alcohol withdrawal requiring benzodiazepines per [facility] protocol. This morning improved psychomotor agitation. Resting comfortably. Was able to greet and opens eyes. CT head reveals cerebral atrophy without acute changes. Improved creatinine from 1.8-0.8 with resolution of renal failure. Continue monitoring for alcohol withdrawals. 09/20- patient extremely somnolent. No overnight events. Improved agitation. No further benzodiazepines administered for last 12 hours. No family at bedside. On protein supplements per dietitian. No fever chills or concerns per staff - Constitutional Vitals: Vital Signs Temp Pulse Resp BP Pulse Ox 98.2 F 60 16 157/92 96 09/20/17 20:00 09/20/17 20:00 09/20/17 20:00 09/20/17 20:00 09/20/17 15:35 Period Temp Pulse Resp BP Sys/Aviles Pulse Ox Last 24 Hr 97.6 F-98.4 F 49-61 16-20 136-157/74-92 96-98 Intake and Output 09/20/17 09/20/17 09/20/17 05:59 13:59 21:59 Intake Total 100 / 100 1120 / 1120 240 / 240 Output Total 950 / 950 1000 / 1000 Balance -850 / -850 1120 / 1120 -760 / -760 Intake & Output: Intake & Output 09/20/17 09/20/17 09/20/17 05:59 13:59 21:59 Intake Total 100 / 100 1120 / 1120 240 / 240 Output Total 950 / 950 1000 / 1000 Balance -850 / -850 1120 / 1120 -760 / -760 Intake: IV 1000 / 1000 Lactated Ringers 1,000 ml @ 100 1000 / 1000 mls/hr IV .Q10H [facility] Rx#: [id number] Oral 100 / 100 120 / 120 240 / 240 Output: Urine Catheter Amount 950 / 950 1000 / 1000 Other: Meal Breakfast Lunch Percent of Meal Consumed 50% Refused Stool Size Large Stool Consistency Soft # of times incontinent of 1 Bowels General appearance: no acute distress Exam: Resting comfortably Arousable to stimulus Nonlabored breathing Unkempt Medical - PN: Obj Da - Labs CBC & Chem 7: 09/21/17 04:20 09/21/17 04:20 Labs: Abnormal Lab Results 09/20/17 09/20/17 09/19/17 04:52 04:52 04:35 RBC 4.05 L Hgb Hct MCV 104.6 H MCH 35.4 H RDW Lymph # (Auto) D-Dimer Chloride Carbon Dioxide BUN 6 L Creatinine Glucose 65 L Calcium Total Protein 5.4 L 5.3 L Albumin 2.9 L 3.0 L Globulin Prealbumin 09/19/17 09/18/17 09/18/17 04:35 04:23 04:23 RBC 3.79 L 3.81 L Hgb 13.2 L 13.4 L Hct 39.9 L 40.1 L MCV 105.3 H 105.4 H MCH 34.9 H 35.2 H RDW 14.9 H 14.7 H Lymph # (Auto) 1.4 L D-Dimer Chloride Carbon Dioxide 19 L BUN Creatinine Glucose Calcium 8.1 L Total Protein 5.2 L Albumin 3.1 L Globulin 2.1 L Prealbumin 09/17/17 09/17/17 09/17/17 19:35 19:35 19:35 RBC Hgb Hct MCV MCH RDW Lymph # (Auto) D-Dimer 0.56 H Chloride 109 H Carbon Dioxide 20 L BUN 30 H Creatinine 1.8 H Glucose Calcium 8.2 L Total Protein Albumin Globulin Prealbumin 15.4 L Meds: Medications Albuterol/Ipratropium (Duoneb) 3 ml NEB Q6HRT [facility] Last Admin: 09/20/17 18:41 Dose: Not Given Chlordiazepoxide HCl (Librium) 0 mg PO Q6 [facility]; Protocol Last Admin: 09/20/17 16:14 Dose: Not Given Enoxaparin Sodium (Lovenox) 30 mg SQ DAILY [facility] Last Admin: 09/20/17 11:04 Dose: 30 mg Folic Acid (Folic Acid) 1 mg PO DAILY [facility] Last Admin: 09/20/17 10:25 Dose: Not Given Iron Carb/Multivit/[employer]/Folic Acid (Multivitamin W/Minerals) 1 tab PO DAILY [facility] Last Admin: 09/20/17 10:25 Dose: Not Given Lorazepam (Ativan) 0 mg IV Q1HP PRN; Protocol PRN Reason: ANXIETY/SEDATION Ondansetron HCl (Zofran) 4 mg IV Q6HP PRN PRN Reason: Nausea And Vomiting Sodium Chloride (Saline Flush) 10 ml IV Q8 [facility] Last Admin: 09/20/17 13:21 Dose: Not Given Thiamine HCl (Vitamin B1) 100 mg PO QDAY [facility] Last Admin: 09/20/17 10:25 Dose: Not Given Medical - PN: A/P - Time Spent With Patient Total time spent is greater than 50% in coordination of care (as documented) at patient's floor/unit and/or counseling patient: 15 - 24 minutes - Narrative A/P Narrative: . * Acute change in mental status- clinically improvement noted. No further anxiety and agitation. On IV thiamine * Alcohol withdrawal/DTs-clinically resolved. Off benzodiazepines * Acute renal failure-clinically resolved. * Poor nutritional status dietitian consult- * Prophylaxis enoxaparin Plan * Dietary supplements * IV thiamine * Continue crystalloids * Physical therapy Medical - PN: Qual - Stroke Symptom Onset Unknown: No - VTE Deep Vein Thrombosis/Pulmonary Embolism Present on Admission: No
[2017-09-21] MEDS: IPRATROPIUM/ALBUTEROL 3 ML AMPUL.NEB NEB SCH ×4 (00:29→18:39)
[2017-09-21] MEDS: chlordiazePOXIDE 25 MG CAPSULE PO SCH ×2 (00:32→06:02)
[2017-09-21] MEDS: 0.9 % SODIUM CHLORIDE 10 ML SYRINGE IV SCH ×3 (04:00→22:14)
[2017-09-21 06:07] LABS: Basophils # (Auto) 0 K/mcL (0.0-0.3); Basophils % (Auto) 0.6 % (0.0-2.0); Eosinophils # (Auto) 0.4 K/mcL (0.0-0.7); Eosinophils % (Auto) 5.5 % (0.0-7.0); Granulocytes % (Auto) 60.2 % (38.0-78.0); Lymphocytes # (Auto) 1.7 K/mcL (1.5-4.8); Lymphocytes % (Auto) 25.5 % (15.5-49.0); Mean Cell Volume 103.6 fL (80.0-100.0); Mean Corpuscular Hemoglobin 35.2 pg (26.0-34.0); Monocytes # (Auto) 0.6 K/mcL (0.1-0.9); Monocytes % (Auto) 8.2 % (1.0-12.0); Platelet Count 238 K/mcL (140-440); RBC 4.38 M/mcL (4.50-5.90); Red Cell Distribution Width 14.4 % (11.5-14.5)
[2017-09-21 06:22] LABS: ALT/SGPT 12 U/l (0-40); Albumin 3.1 gm/dL (3.2-5.2); Albumin/Globulin Ratio 1.3 (1.0-2.3); Alkaline Phosphatase 70 U/L (39-117); Blood Urea Nitrogen 6 mg/dl (8-23)
[2017-09-21] MEDS: THIAMINE 100 MG TABLET PO SCH (08:23)
[2017-09-21] MEDS: ENOXAPARIN 30 MG/0.3 ML SYRINGE SQ SCH (08:23)
[2017-09-21] MEDS: FOLIC ACID 1 MG TABLET PO SCH (08:23)
[2017-09-21] MEDS: MULTIVIT,THER IRON,CA,FA & MIN 1 TABLET PO SCH (08:23)
--- NOTE | 2017-09-21 09:02 | Internal Med Progress Note ---
Medical - PN: Subj Patient information: Note initiated : 09/21/17 at 9:00 am Service Date, if different from initiated Date: [] Patient: Carloz Doshi a 67 y/o M admitted on 09/17/17 for Altered Mental Status, Encephalopathy,Kidney Injury. Chief Complaint: [] Interval history: Mr. Doshi is a 67 year old M with significant history of tobacco and alcohol abuse, alcohol withdrawal seizures, is noted to be unkempt, beheaving strangely , with incoherent speech, in underwear. Apparently his neighbors concerned and called the EMS. He is in a catatonic state, nonresponsive and nonverbal with blank stares. No information is available other than verbal reports from EMS and ER provider,Tanesha Borjas PA-C, who says his brother's contact number on his record does not work. Preliminary lab work showed acute kidney injury, with severe dehydration, urine drug screen is pending. He has gotten, a liter of IV fluid, and he is currently receiving banana bag and additional thiamine ( orally or IM). We'll admit him on MedSurg with watcher, aggressive IV fluid rehydration, daily uctnyalhtreac-troprmrz-fzwqtg, evaluate and treat reversible medical causes 09/18/2017 Overnight, his renal function improves with IV fluid rehydration, had moments of awake responsiveness, however still encephalopathic, unable to communicate normally. His urine screen came back positive for marijuana, pending confirmatory test. His brother and cousin came in and provided more information: he has years of alcohol abuse and smoke pots, had withdrawal seizure and DT in the past, may have epilepsy disorder at young age (thought that medication mess up his mind, therefore doesn't like medications & see doctors, few family members have mental health disorders, had impulse control issues (often gets into fights), apparently was not behaving normally in the last several days, with hallucinations. His brother and cousin want to seek help for him but have limited information/source September 19-patient in significant alcohol withdrawal requiring benzodiazepines per [facility] protocol. This morning improved psychomotor agitation. Resting comfortably. Was able to greet and opens eyes. CT head reveals cerebral atrophy without acute changes. Improved creatinine from 1.8-0.8 with resolution of renal failure. Continue monitoring for alcohol withdrawals. 09/20- patient extremely somnolent. No overnight events. Improved agitation. No further benzodiazepines administered for last 12 hours. No family at bedside. On protein supplements per dietitian. No fever chills or concerns per staff 09/21 patient sitting on chair eating breakfast. Alert and lucid. No overnight events or concerns per staff. Off benzodiazepines. Continue aggressive physical therapy. Anticipate SNF transfer in 24-48 hours. - Constitutional Vitals: Vital Signs Temp Pulse Resp BP Pulse Ox 98 F 66 20 121/72 92 09/21/17 06:44 09/21/17 07:32 09/21/17 07:32 09/21/17 06:44 09/21/17 07:30 Period Temp Pulse Resp BP Sys/Aviles Pulse Ox Last 24 Hr 97.6 F-98.2 F 51-66 16-20 121-157/72-92 92-97 Intake and Output 09/20/17 09/21/17 09/21/17 21:59 05:59 13:59 Intake Total 240 / 240 1452 / 1452 Output Total 1000 / 1000 650 / 650 Balance -760 / -760 802 / 802 Weight 150 lb Intake & Output: Intake & Output 09/20/17 09/21/17 09/21/17 21:59 05:59 13:59 Intake Total 240 / 240 1452 / 1452 Output Total 1000 / 1000 650 / 650 Balance -760 / -760 802 / 802 Weight 150 lb Intake: IV 1000 / 1000 Oral 240 / 240 452 / 452 Output: Urine Catheter Amount 1000 / 1000 650 / 650 Other: Meal Lunch Ensure Percent of Meal Consumed Refused 100% Feeding Ability Independent General appearance: no acute distress Exam: Sitting on chair Intimately confused no agitation or anxiety Nonlabored breathing Medical - PN: Obj Da - Labs CBC & Chem 7: 09/21/17 04:20 09/21/17 04:20 Labs: Abnormal Lab Results 09/21/17 09/21/17 09/20/17 04:20 04:20 04:52 RBC 4.38 L Hgb Hct MCV 103.6 H MCH 35.2 H RDW Lymph # (Auto) Potassium 3.2 L BUN 6 L 6 L Glucose 133 H Total Protein 5.5 L 5.4 L Albumin 3.1 L 2.9 L 09/20/17 09/19/17 09/19/17 04:52 04:35 04:35 RBC 4.05 L 3.79 L Hgb 13.2 L Hct 39.9 L MCV 104.6 H 105.3 H MCH 35.4 H 34.9 H RDW 14.9 H Lymph # (Auto) 1.4 L Potassium BUN Glucose 65 L Total Protein 5.3 L Albumin 3.0 L Meds: Medications Albuterol/Ipratropium (Duoneb) 3 ml NEB Q6HRT [facility] Last Admin: 09/21/17 07:29 Dose: 3 ml Chlordiazepoxide HCl (Librium) 0 mg PO Q6 [facility]; Protocol Last Admin: 09/21/17 06:02 Dose: Not Given Enoxaparin Sodium (Lovenox) 30 mg SQ DAILY [facility] Last Admin: 09/21/17 08:23 Dose: 30 mg Folic Acid (Folic Acid) 1 mg PO DAILY [facility] Last Admin: 09/21/17 08:23 Dose: 1 mg Iron Carb/Multivit/Haakon/Folic Acid (Multivitamin W/Minerals) 1 tab PO DAILY [facility] Last Admin: 09/21/17 08:23 Dose: 1 tab Lorazepam (Ativan) 0 mg IV Q1HP PRN; Protocol PRN Reason: ANXIETY/SEDATION Ondansetron HCl (Zofran) 4 mg IV Q6HP PRN PRN Reason: Nausea And Vomiting Sodium Chloride (Saline Flush) 10 ml IV Q8 [facility] Last Admin: 09/21/17 04:00 Dose: 10 ml Thiamine HCl (Vitamin B1) 100 mg PO QDAY [facility] Last Admin: 09/21/17 08:23 Dose: 100 mg Medical - PN: A/P - Time Spent With Patient Total time spent is greater than 50% in coordination of care (as documented) at patient's floor/unit and/or counseling patient: 15 - 24 minutes - Narrative A/P Narrative: . * Acute change in mental status- much awake and alert this morning. Continue existing treatments/therapies * Alcohol withdrawal/DTs-clinically resolved. Off benzodiazepines * Acute renal failure-clinically resolved. * Poor nutritional status-continue dietary supplements * Advanced cognitive dysfunction likely underlying alcoholic encephalopathy. Nearing baseline * Severe deconditioning continue PT OT * Prophylaxis enoxaparin Plan * PT OT for deconditioning * Case management to arrange SNF transfer and likely 24-48 hours Medical - PN: Qual - Stroke Symptom Onset Unknown: No - VTE Deep Vein Thrombosis/Pulmonary Embolism Present on Admission: No
[2017-09-21] MEDS ORDERED: ACETAMINOPHEN 325 MG TABLET PO PRN (11:51)
[2017-09-21] MEDS ORDERED: POTASSIUM CHLORIDE 20 MEQ TABLET PO ONE (17:36)
[2017-09-22] MEDS: IPRATROPIUM/ALBUTEROL 3 ML AMPUL.NEB NEB SCH ×4 (01:48→18:49)
[2017-09-22] MEDS: 0.9 % SODIUM CHLORIDE 10 ML SYRINGE IV SCH ×3 (04:33→20:26)
[2017-09-22 05:06] LABS: Basophils # (Auto) 0 K/mcL (0.0-0.3); Basophils % (Auto) 0.5 % (0.0-2.0); Eosinophils # (Auto) 0.3 K/mcL (0.0-0.7); Granulocytes % (Auto) 60.8 % (38.0-78.0); Lymphocytes # (Auto) 1.6 K/mcL (1.5-4.8); Lymphocytes % (Auto) 24.3 % (15.5-49.0); Mean Cell Volume 104.4 fL (80.0-100.0); Mean Corpuscular HGB Conc 33.1 g/dL (31.0-36.0); Mean Corpuscular Hemoglobin 34.6 pg (26.0-34.0); Monocytes # (Auto) 0.6 K/mcL (0.1-0.9); Monocytes % (Auto) 9.4 % (1.0-12.0); Platelet Count 265 K/mcL (140-440); RBC 4.27 M/mcL (4.50-5.90); Red Cell Distribution Width 14.4 % (11.5-14.5)
[2017-09-22 05:34] LABS: ALT/SGPT 9 U/l (0-40); Albumin 3.1 gm/dL (3.2-5.2); Albumin/Globulin Ratio 1.1 (1.0-2.3); Alkaline Phosphatase 68 U/L (39-117); Blood Urea Nitrogen 8 mg/dl (8-23)
[2017-09-22] MEDS: THIAMINE 100 MG TABLET PO SCH (08:11)
[2017-09-22] MEDS: MULTIVIT,THER IRON,CA,FA & MIN 1 TABLET PO SCH (08:11)
[2017-09-22] MEDS: FOLIC ACID 1 MG TABLET PO SCH (08:11)
[2017-09-22] MEDS: ENOXAPARIN 30 MG/0.3 ML SYRINGE SQ SCH (08:11)
[2017-09-22] MEDS ORDERED: LIDOCAINE 1% 20 ML VIAL SQ ONE (12:50)
--- NOTE | 2017-09-22 12:57 | XRay Report ---
CLINICAL INFORMATION: Encephalopathy COMPARISON: None. TECHNIQUE: The procedure and risks including the possibility of bleeding, infection, CSF leak requiring blood patch were explained to the patient. They understood and wished to proceed. Under fluoroscopic guidance, the right L2-3 intralaminar space was marked, prepped and locally anesthetized with 1% Lidocaine using a 25 gauge needle. A 22 gauge spinal needle was placed under fluoroscopy through the intralaminar space into the thecal sac. Opening pressure was 7 cm water Approximately 10 cc of clear CSF was aspirated and sent to pathology for requested studies. There was no apparent complication. The patient tolerated procedure well. IMPRESSION: Successful fluoroscopic guided lumbar puncture yielding 10 cc of clear CSF. Opening pressure: 7 cm water No apparent complications. Interpreted and Authenticated by: Yaniv Gotti 09/22/17
[2017-09-22 14:04] LABS: Glucose,CSF 64 mg/dL (45-75)
[2017-09-22 14:43] LABS: Appearance,CSF CLEAR; Nucleated Cells,CSF 11 /cumm (0-5); Red Blood Cell,CSF 0 /cumm (0-1)
[2017-09-23] MEDS: IPRATROPIUM/ALBUTEROL 3 ML AMPUL.NEB NEB SCH (01:05)
[2017-09-23] MEDS: 0.9 % SODIUM CHLORIDE 10 ML SYRINGE IV SCH ×3 (06:05→23:58)
[2017-09-23] MEDS ORDERED: IPRATROPIUM/ALBUTEROL 3 ML AMPUL.NEB NEB PRN (06:20)
--- NOTE | 2017-09-23 06:21 | Internal Med Progress Note ---
Medical - PN: Subj Patient information: Note initiated : 09/23/17 at 6:20 am Service Date, if different from initiated Date: [] Patient: Carloz Doshi a 67 y/o M admitted on 09/17/17 for Altered Mental Status, Encephalopathy,Kidney Injury. Chief Complaint: [] Interval history: Mr. Doshi is a 67 year old M with significant history of tobacco and alcohol abuse, alcohol withdrawal seizures, is noted to be unkempt, beheaving strangely , with incoherent speech, in underwear. Apparently his neighbors concerned and called the EMS. He is in a catatonic state, nonresponsive and nonverbal with blank stares. No information is available other than verbal reports from EMS and ER provider,Tanesha Borjas PA-C, who says his brother's contact number on his record does not work. Preliminary lab work showed acute kidney injury, with severe dehydration, urine drug screen is pending. He has gotten, a liter of IV fluid, and he is currently receiving banana bag and additional thiamine ( orally or IM). We'll admit him on MedSurg with watcher, aggressive IV fluid rehydration, daily laghrhcablyvf-lmnlgabu-cickrw, evaluate and treat reversible medical causes 09/18/2017 Overnight, his renal function improves with IV fluid rehydration, had moments of awake responsiveness, however still encephalopathic, unable to communicate normally. His urine screen came back positive for marijuana, pending confirmatory test. His brother and cousin came in and provided more information: he has years of alcohol abuse and smoke pots, had withdrawal seizure and DT in the past, may have epilepsy disorder at young age (thought that medication mess up his mind, therefore doesn't like medications & see doctors, few family members have mental health disorders, had impulse control issues (often gets into fights), apparently was not behaving normally in the last several days, with hallucinations. His brother and cousin want to seek help for him but have limited information/source September 19-patient in significant alcohol withdrawal requiring benzodiazepines per [facility] protocol. This morning improved psychomotor agitation. Resting comfortably. Was able to greet and opens eyes. CT head reveals cerebral atrophy without acute changes. Improved creatinine from 1.8-0.8 with resolution of renal failure. Continue monitoring for alcohol withdrawals. 09/20- patient extremely somnolent. No overnight events. Improved agitation. No further benzodiazepines administered for last 12 hours. No family at bedside. On protein supplements per dietitian. No fever chills or concerns per staff 09/21 patient sitting on chair eating breakfast. Alert and lucid. No overnight events or concerns per staff. Off benzodiazepines. Continue aggressive physical therapy. Anticipate SNF transfer in 24-48 hours. 09/22-Patient more lucid and alert. Able to tolerate diet. No overnight events. No concerns per staff. Await [facility] eval. Anticipate SNF transfer once clinically stable - Constitutional Vitals: Vital Signs Temp Pulse Resp BP Pulse Ox 97.7 F 71 18 116/76 94 09/23/17 04:00 09/23/17 04:00 09/23/17 04:00 09/23/17 04:00 09/23/17 04:00 Period Temp Pulse Resp BP Sys/Aviles Pulse Ox Last 24 Hr 97.7 F-98.8 F 65-106 14-24 93-166/60-92 94-97 Intake and Output 09/22/17 09/23/17 09/23/17 21:59 05:59 13:59 Intake Total 60 / 60 50 / 50 Output Total 425 / 425 400 / 400 Balance -365 / -365 -350 / -350 Weight 147 lb 4.8 oz Intake & Output: Intake & Output 09/22/17 09/23/17 09/23/17 21:59 05:59 13:59 Intake Total 60 / 60 50 / 50 Output Total 425 / 425 400 / 400 Balance -365 / -365 -350 / -350 Weight 147 lb 4.8 oz Intake: Oral 60 / 60 50 / 50 Output: Void Amount 425 / 425 400 / 400 Other: Meal Dinner Percent of Meal Consumed 75% Feeding Ability Independent General appearance: no acute distress Exam: More alert Nonlabored breathing No anxiety Medical - PN: Obj Da - Labs CBC & Chem 7: 09/22/17 04:08 09/22/17 04:08 Labs: Abnormal Lab Results 09/22/17 09/22/17 09/22/17 12:48 04:08 04:08 RBC 4.27 L MCV 104.4 H MCH 34.6 H Potassium BUN Glucose Total Protein Albumin 3.1 L CSF Total Nucleated Auto 11 H 09/21/17 09/21/17 09/20/17 04:20 04:20 04:52 RBC 4.38 L MCV 103.6 H MCH 35.2 H Potassium 3.2 L BUN 6 L 6 L Glucose 133 H Total Protein 5.5 L 5.4 L Albumin 3.1 L 2.9 L CSF Total Nucleated Auto 09/20/17 04:52 RBC 4.05 L MCV 104.6 H MCH 35.4 H Potassium BUN Glucose Total Protein Albumin CSF Total Nucleated Auto Meds: Medications Acetaminophen (Tylenol) 650 mg PO Q4HP PRN PRN Reason: PAIN/FEVER > 101 Albuterol/Ipratropium (Duoneb) 3 ml NEB Q6HP PRN PRN Reason: Shortness Of Breath Or Wheezing Enoxaparin Sodium (Lovenox) 30 mg SQ DAILY [facility] Last Admin: 09/22/17 08:11 Dose: 30 mg Folic Acid (Folic Acid) 1 mg PO DAILY [facility] Last Admin: 09/22/17 08:11 Dose: 1 mg Iron Carb/Multivit/Audit Officer/Folic Acid (Multivitamin W/Minerals) 1 tab PO DAILY [facility] Last Admin: 09/22/17 08:11 Dose: 1 tab Ondansetron HCl (Zofran) 4 mg IV Q6HP PRN PRN Reason: Nausea And Vomiting Sodium Chloride (Saline Flush) 10 ml IV Q8 [facility] Last Admin: 09/23/17 06:05 Dose: Not Given Thiamine HCl (Vitamin B1) 100 mg PO QDAY [facility] Last Admin: 09/22/17 08:11 Dose: 100 mg Medical - PN: A/P - Time Spent With Patient Total time spent is greater than 50% in coordination of care (as documented) at patient's floor/unit and/or counseling patient: 15 - 24 minutes - Narrative A/P Narrative: . * Acute change in mental status-clinically improving by the day. * Alcohol withdrawal/DTs-clinically resolved. Off benzodiazepines * Acute renal failure-clinically resolved. * Poor nutritional status-continue dietary supplements * Advanced cognitive dysfunction likely underlying alcoholic encephalopathy. Nearing baseline * Severe deconditioning continue PT OT * Prophylaxis enoxaparin Plan * PT OT for deconditioning * Nutritional consult * Quality behavioral health consult * Case management to arrange SNF transfer Medical - PN: Qual - Stroke Symptom Onset Unknown: No - VTE Deep Vein Thrombosis/Pulmonary Embolism Present on Admission: No
[2017-09-23] MEDS: THIAMINE 100 MG TABLET PO SCH (09:15)
[2017-09-23] MEDS: ENOXAPARIN 30 MG/0.3 ML SYRINGE SQ SCH (09:15)
[2017-09-23] MEDS: FOLIC ACID 1 MG TABLET PO SCH (09:15)
[2017-09-23] MEDS: MULTIVIT,THER IRON,CA,FA & MIN 1 TABLET PO SCH (09:15)
--- NOTE | 2017-09-23 16:43 | Internal Med Progress Note ---
Medical - PN: Subj Patient information: Note initiated : 09/23/17 at 4:41 pm Service Date, if different from initiated Date: [] Patient: Carloz Doshi a 67 y/o M admitted on 09/17/17 for Altered Mental Status, Encephalopathy,Kidney Injury. Chief Complaint: [] Interval history: Mr. Doshi is a 67 year old M with significant history of tobacco and alcohol abuse, alcohol withdrawal seizures, is noted to be unkempt, beheaving strangely , with incoherent speech, in underwear. Apparently his neighbors concerned and called the EMS. He is in a catatonic state, nonresponsive and nonverbal with blank stares. No information is available other than verbal reports from EMS and ER provider,Tanesha Borjas PA-C, who says his brother's contact number on his record does not work. Preliminary lab work showed acute kidney injury, with severe dehydration, urine drug screen is pending. He has gotten, a liter of IV fluid, and he is currently receiving banana bag and additional thiamine ( orally or IM). We'll admit him on MedSurg with watcher, aggressive IV fluid rehydration, daily fcpelpvexfmlv-yrjkokzl-zaysmg, evaluate and treat reversible medical causes 09/18/2017 Overnight, his renal function improves with IV fluid rehydration, had moments of awake responsiveness, however still encephalopathic, unable to communicate normally. His urine screen came back positive for marijuana, pending confirmatory test. His brother and cousin came in and provided more information: he has years of alcohol abuse and smoke pots, had withdrawal seizure and DT in the past, may have epilepsy disorder at young age (thought that medication mess up his mind, therefore doesn't like medications & see doctors, few family members have mental health disorders, had impulse control issues (often gets into fights), apparently was not behaving normally in the last several days, with hallucinations. His brother and cousin want to seek help for him but have limited information/source September 19-patient in significant alcohol withdrawal requiring benzodiazepines per [facility] protocol. This morning improved psychomotor agitation. Resting comfortably. Was able to greet and opens eyes. CT head reveals cerebral atrophy without acute changes. Improved creatinine from 1.8-0.8 with resolution of renal failure. Continue monitoring for alcohol withdrawals. 09/20- patient extremely somnolent. No overnight events. Improved agitation. No further benzodiazepines administered for last 12 hours. No family at bedside. On protein supplements per dietitian. No fever chills or concerns per staff 09/21 patient sitting on chair eating breakfast. Alert and lucid. No overnight events or concerns per staff. Off benzodiazepines. Continue aggressive physical therapy. Anticipate SNF transfer in 24-48 hours. 09/22-Patient more lucid and alert. Able to tolerate diet. No overnight events. No concerns per staff. Await [facility] eval. Anticipate SNF transfer once clinically stable 09/23-patient doing better. No overnight events. Extended conference with family and [facility] today. Patient was able to participate in some conversations. Anticipate discharge in 24 hours - Constitutional Vitals: Vital Signs Temp Pulse Resp BP Pulse Ox 97.5 F 74 18 118/78 95 09/23/17 12:00 09/23/17 12:00 09/23/17 12:00 09/23/17 12:00 09/23/17 12:00 Period Temp Pulse Resp BP Sys/Aviles Pulse Ox Last 24 Hr 97.2 F-98.5 F 70-106 18-20 115-166/76-92 94-95 Intake and Output 09/23/17 09/23/17 09/23/17 05:59 13:59 21:59 Intake Total 50 / 50 Output Total 400 / 400 350 / 350 Balance -350 / -350 -350 / -350 Intake & Output: Intake & Output 09/23/17 09/23/17 09/23/17 05:59 13:59 21:59 Intake Total 50 / 50 Output Total 400 / 400 350 / 350 Balance -350 / -350 -350 / -350 Intake: Oral 50 / 50 Output: Void Amount 400 / 400 350 / 350 Medical - PN: Obj Da - Labs CBC & Chem 7: 09/22/17 04:08 09/22/17 04:08 Labs: Abnormal Lab Results 09/22/17 09/22/17 09/22/17 12:48 04:08 04:08 RBC 4.27 L MCV 104.4 H MCH 34.6 H Potassium BUN Glucose Total Protein Albumin 3.1 L CSF Total Nucleated Auto 11 H 09/21/17 09/21/17 04:20 04:20 RBC 4.38 L MCV 103.6 H MCH 35.2 H Potassium 3.2 L BUN 6 L Glucose 133 H Total Protein 5.5 L Albumin 3.1 L CSF Total Nucleated Auto Meds: Medications Acetaminophen (Tylenol) 650 mg PO Q4HP PRN PRN Reason: PAIN/FEVER > 101 Albuterol/Ipratropium (Duoneb) 3 ml NEB Q6HP PRN PRN Reason: Shortness Of Breath Or Wheezing Enoxaparin Sodium (Lovenox) 30 mg SQ DAILY [facility] Last Admin: 09/23/17 09:15 Dose: 30 mg Folic Acid (Folic Acid) 1 mg PO DAILY [facility] Last Admin: 09/23/17 09:15 Dose: 1 mg Iron Carb/Multivit/Portable Feed Mill Operator/Folic Acid (Multivitamin W/Minerals) 1 tab PO DAILY [facility] Last Admin: 09/23/17 09:15 Dose: 1 tab Ondansetron HCl (Zofran) 4 mg IV Q6HP PRN PRN Reason: Nausea And Vomiting Sodium Chloride (Saline Flush) 10 ml IV Q8 [facility] Last Admin: 09/23/17 15:34 Dose: 10 ml Thiamine HCl (Vitamin B1) 100 mg PO QDAY [facility] Last Admin: 09/23/17 09:15 Dose: 100 mg Medical - PN: A/P - Time Spent With Patient Total time spent is greater than 50% in coordination of care (as documented) at patient's floor/unit and/or counseling patient: 15 - 24 minutes - Narrative A/P Narrative: . * Acute change in mental status-nearing baseline. CSF studies within normal limits. CSF VDRL pending * Alcohol withdrawal/DTs-clinically resolved. * Acute renal failure-clinically resolved. * Poor nutritional status-continue dietary supplements * Advanced cognitive dysfunction likely underlying alcoholic encephalopathy. Nearing baseline * Severe deconditioning continue PT OT * Prophylaxis enoxaparin Plan * Continue PT OT for deconditioning * Await SNF transfer Medical - PN: Qual - Stroke Symptom Onset Unknown: No - VTE Deep Vein Thrombosis/Pulmonary Embolism Present on Admission: No
[2017-09-24] MEDS: 0.9 % SODIUM CHLORIDE 10 ML SYRINGE IV SCH (06:12)
[2017-09-24] MEDS ORDERED: MAGNESIUM HYDROXIDE 30 ML ORAL.SUSP PO PRN (06:57)
[2017-09-24] MEDS: MULTIVIT,THER IRON,CA,FA & MIN 1 TABLET PO SCH (09:31)
[2017-09-24] MEDS: THIAMINE 100 MG TABLET PO SCH (09:32)
[2017-09-24] MEDS: ENOXAPARIN 30 MG/0.3 ML SYRINGE SQ SCH (09:32)
[2017-09-24] MEDS: FOLIC ACID 1 MG TABLET PO SCH (09:32)
--- NOTE | 2017-09-24 10:44 | Discharge Summary ---
Medical - DS: Prov Patient information: Note initiated : 09/24/17 at 10:42 am Service Date, if different from initiated Date: [] Patient: Carloz Doshi 67 y/o M admitted on 09/17/17 for Altered Mental Status, Encephalopathy,Kidney Injury. 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 close to baseline. Transfer to SNF * Acute change in mental status-nearing baseline. CSF studies within normal limits. CSF VDRL pending * Alcohol withdrawal/DTs-clinically resolved. * Acute renal failure-clinically resolved. * Poor nutritional status-continue dietary supplements at SNF * Severe deconditioning continue PT OT Brief hospital course Mr. Doshi is a 67 year old M Mr. Doshi is a 67 year old M with significant history of tobacco and alcohol abuse, alcohol withdrawal seizures, is noted to be unkempt, beheaving strangely , with incoherent speech, in underwear. Apparently his neighbors concerned and called the EMS. He is in a catatonic state, nonresponsive and nonverbal with blank stares. No information is available other than verbal reports from EMS and ER provider,Tanesha Borjas PA-C, who says his brother's contact number on his record does not work. Preliminary lab work showed acute kidney injury, with severe dehydration, urine drug screen is pending. He has gotten, a liter of IV fluid, and he is currently receiving banana bag and additional thiamine ( orally or IM). We'll admit him on MedSurg with watcher, aggressive IV fluid rehydration, daily [id number], evaluate and treat reversible medical causes 09/18/2017 Overnight, his renal function improves with IV fluid rehydration, had moments of awake responsiveness, however still encephalopathic, unable to communicate normally. His urine screen came back positive for marijuana, pending confirmatory test. His brother and cousin came in and provided more information: he has years of alcohol abuse and smoke pots, had withdrawal seizure and DT in the past, may have epilepsy disorder at young age (thought that medication mess up his mind, therefore doesn't like medications & see doctors, few family members have mental health disorders, had impulse control issues (often gets into fights), apparently was not behaving normally in the last several days, with hallucinations. His brother and cousin want to seek help for him but have limited information/source September 19-patient in significant alcohol withdrawal requiring benzodiazepines per [facility] protocol. This morning improved psychomotor agitation. Resting comfortably. Was able to greet and opens eyes. CT head reveals cerebral atrophy without acute changes. Improved creatinine from 1.8-0.8 with resolution of renal failure. Continue monitoring for alcohol withdrawals. 09/20- patient extremely somnolent. No overnight events. Improved agitation. No further benzodiazepines administered for last 12 hours. No family at bedside. On protein supplements per dietitian. No fever chills or concerns per staff 09/21 patient sitting on chair eating breakfast. Alert and lucid. No overnight events or concerns per staff. Off benzodiazepines. Continue aggressive physical therapy. Anticipate SNF transfer in 24-48 hours. 09/22-Patient more lucid and alert. Able to tolerate diet. No overnight events. No concerns per staff. Await [facility] eval. Anticipate SNF transfer once clinically stable 09/23-patient doing better. No overnight events. Extended conference with family and [facility] today. Patient was able to participate in some conversations. Anticipate discharge in 24 hours 09/24-patient discharging to [facility] SN[facility] for continued posthospitalization rehabilitation. Continue aggressive PT OT/dietary supplements. Patient nearing baseline however has advanced cognitive dysfunction secondary to alcoholism which may show signs of improvement over time off alcohol. Discharge instructions as below Discharge diagnosis: . - Time Spent with Patient Total time spent providing and/or coordinating discharge services: Greater than 30 minutes Medical - DS: Exam - Constitutional Vitals: Vital Signs Temp Pulse Pulse Resp BP BP BP 09/24/17 07:52 77 18 09/24/17 07:28 97.6 F 20 115/49 09/24/17 04:00 97.7 F 73 24 H 120/78 09/23/17 23:52 98.2 F 74 24 H 128/83 09/23/17 19:42 97.9 F 75 24 H 130/87 09/23/17 16:35 72 18 09/23/17 16:00 97.6 F 69 18 113/18 09/23/17 12:00 97.5 F 74 18 118/78 Pulse Ox 09/24/17 07:52 09/24/17 07:28 93 09/24/17 04:00 93 09/23/17 23:52 93 09/23/17 19:42 95 09/23/17 16:35 09/23/17 16:00 95 09/23/17 12:00 95 Intake and Output 09/23/17 09/24/17 09/24/17 21:59 05:59 13:59 Intake Total 0 / 0 Output Total 350 / 350 150 / 150 Balance -350 / -350 -150 / -150 Intake: Oral 0 / 0 Output: Void Amount 350 / 350 150 / 150 Other: Meal Dinner Percent of Meal Consumed 25% Weight 149 lb Medical - DS: A/P - Patient/Caregiver Discharge Instructions Activity: as per physical therapy, resume usual activities as tolerated Diet: Regular Diet Additional Instructions: Follow-up PCP in 5 days Continue aggressive bowel regimen to prevent constipation Continue fall precautions Continue aggressive PT OT evaluation and treatment at SNF. ST eval and treatment if indicated All meals on chair sitting upright at 90 degrees to prevent aspiration Return to ER if worsening fever chills shortness of breath, diarrhea, bleeding Refrain from alcohol Continue diet and activity as advised Discussed importance of medication adherence Please review medication list with patient prior to discharge Please schedule follow-up with PCP/Providers prior to discharge and provide printouts Portions of this chart may have been created with [employer] voice recognition software. Occasional wrong-word or ?sound-like? substitutions may have occurred due to the inherent limitations of voice recognition software. Please read the chart carefully and recognize, using context, where the substitutions have occurred. CC- PCP quality - Follow up Plan Follow up with: No,PCP [Primary Care Provider] - Disposition: Xfer SNF Prognosis: Fair Rehab Potential: Fair I certify that the patient requires SNF services: Yes Overall status at discharge: patient is progressing back to baseline Medical - DS: Qual - VTE Deep Vein Thrombosis/Pulmonary Embolism Present on Admission: No
[2017-09-24] MEDS ORDERED: levETIRAcetam 500 MG in 0.9 % SODIUM CHLORIDE 100 ML IV ONE (12:20)
== END 2017-09-24 13:35 | DRG 57 ==
LOC: ED 13:26 → MEDSUR 19:03
PROVIDERS: ADMIT Emergency Medicine; ATTEND Internal Medicine